=== PATIENT | female | born 1970 | race Two or more races ===

== ENCOUNTER 2023-03-26 18:28 | Emergency (ER) | payer OTHER ==
[~2023-03-26] VITALS: Ht 172.7 cm; Wt 80.7 kg
[2023-03-26 18:37] VITALS: BP 112/65; TEMP 99; O2SAT 99
== END 2023-03-26 21:05 | disposition left against medical advice (07) ==
LOC: ER 18:37
DX: J11.1 Influenza due to unidentified influenza virus with other respiratory manifestations (principal); Z53.21 Procedure and treatment not carried out due to patient leaving prior to being seen by health care provider